=== PATIENT | male | born 1990 | race African-American/Black ===

== ENCOUNTER 2018-09-29 14:45 | Emergency (ER) | payer OTHER ==
[~2018-09-29] VITALS: Ht 167.6 cm; Wt 85.9 kg
[2018-09-29 15:03] VITALS: Ht 167.6 cm; Wt 85.9 kg
[2018-09-29 16:46] LABS: ALBUMIN 4.6 g/dL (3.4-5.0); ALKALINE PHOSPHATASE 56 U/L (46-116); ALT (SGPT) 51 U/L (10-68); BILIRUBIN - TOTAL 0.57 mg/dL (0.2-1.3); CALC OSMOLALITY 273 mosm/kg (275-300); CALCIUM 9.3 mg/dL (8.5-10.1); CARBON DIOXIDE 26.3 mmol/L (21.0-32.0); CHLORIDE - SERUM 99 mmol/L (98-107); CREATININE - SERUM 1.5 mg/dL (0.6-1.3); GLUCOSE 101 mg/dL (74-106); POTASSIUM - SERUM 4.6 mmol/L (3.5-5.1); PROTEIN - SERUM 8.9 g/dL (6.4-8.2); SODIUM 136 mmol/L (136-145); UREA NITROGEN 17 mg/dL (7-18); eGFR NON AFRICAN AMERICAN 59 mL/min (90-120)
[2018-09-29 17:07] LABS: BASOPHILS 0 % (0-2); EOSINOPHILS 0 % (0-7); HEMATOCRIT 47.8 % (42.0-54.0); HEMOGLOBIN 17.3 g/dL (13.5-17.5); LYMPHOCYTES 18.3 % (15-50); MCHC 36.2 g/dL (31.0-37.0); MCV 88.5 fL (80.0-100.0); MEAN PLATELET VOLUME 11.3 fL (7.4-10.4); MONOCYTES 9.2 % (2-11); NEUTROPHILS 72.5 % (40-80); PLATELET COUNT 153 10x3/uL (130-400); WBC 4.6 10x3/uL (4.8-10.8)
[2018-09-29 17:14] LABS: TROPONIN-I < 0.017 ng/mL (0.000-0.060)
[2018-09-29] MEDS ORDERED: OMEPRAZOLE40 MG PO (17:34)
[2018-09-29 18:26] VITALS: BP 160/98
== END 2018-09-29 18:22 | disposition home or self-care (01) ==
LOC: D.ER 14:45
PROVIDERS: Family Medicine
DX: R07.9 Chest pain, unspecified (principal); R51 Headache

== ENCOUNTER 2018-11-28 21:28 | Emergency (ER) | payer OTHER ==
[~2018-11-28 21:28] MED LIST: OMEPRAZOLE40 MG PO
[2018-11-28 21:30] VITALS: Ht 167.6 cm
[2018-11-28] MEDS ORDERED: KEFLEX500 MG PO (22:30)
[2018-11-28 22:48] VITALS: BP 121/82
== END 2018-11-28 22:49 | disposition home or self-care (01) ==
LOC: D.ER 21:28
DX: S61.112A Laceration without foreign body of left thumb with damage to nail, initial encounter (principal); W26.0XXA Contact with knife, initial encounter; K21.9 Gastro-esophageal reflux disease without esophagitis; F17.200 Nicotine dependence, unspecified, uncomplicated